=== PATIENT | female | born 1950 | race Asian ===

== ENCOUNTER 2019-03-31 11:47 | Emergency (ER) | payer OTHER ==
[~2019-03-31] VITALS: Ht 182.9 cm; Wt 91.2 kg
[2019-03-31] MEDS ORDERED: TRIAMCINOLON0.12 TOP (12:24)
[2019-03-31] MEDS ORDERED: TYLENOL325 MG PO (12:24)
[2019-03-31] MEDS ORDERED: METO50TA63 PO (12:26)
[2019-03-31] MEDS ORDERED: VITAMIN D1000 UNI1 PO (12:27)
[2019-03-31] MEDS ORDERED: AMLODIPINE BESYLATE PO (12:28)
[2019-03-31] MEDS ORDERED: ASPIRIN/ENTERIC81 MG PO (12:28)
[2019-03-31] MEDS ORDERED: MAGN400T4 PO (12:29)
[2019-03-31] MEDS ORDERED: EUTHYROX75 MCG PO (12:29)
[2019-03-31] MEDS ORDERED: VALA500T2 PO (12:30)
[2019-03-31 13:00] LABS: PLATELET COUNT 215 K/uL (152-353)
[2019-03-31 13:14] LABS: POTASSIUM 3.9 mmol/L (3.6-5.2); SODIUM 140 mmol/L (136-145)
[2019-03-31 19:40] VITALS: BP 126/61; TEMP 98
== END 2019-03-31 19:40 | disposition home or self-care (01) ==
LOC: ED 11:47
PROVIDERS: Emergency Medicine
DX: E86.0 Dehydration (principal); E83.42 Hypomagnesemia
CPT/HCPCS: 80053; 81000; 82140; 83735; 84484; 85027; 93005; 96360; 96365; 96366; 99284; J3475